=== PATIENT | male | born 1945 | race Caucasian/White ===

== ENCOUNTER 2017-02-13 09:27 | Observation (INO) | payer MEDICARE, OTHER ==
[2017-02-13] MEDS ORDERED: Albuterol/Ipratropium NEB.SOL* Albuterol 2.5 MG/Ipratropium 0.5 MG 3 ML INH ONE ×2 (09:47→11:17)
[2017-02-13] MEDS ORDERED: methylPREDNISolone 125 MG* 2 ML VIAL IM ONE (10:32)
--- NOTE | 2017-02-13 10:35 | ED ---
HPI Cardiac - HPI Summary HPI Summary: Pt here w/ cough x 1 week. Smokes. Started using his rx's of albuterol + advair upon cough starting - doesn't use these routinely otherwise. Minimal relief. Cough is productive at times. Has SOB as well. He has developed CP w/ cough over past couple of days. H/o pleural effusion. No known h/o requiring prednisone for breathing issues. Denies fever, chills, n/v/d. H/o OR - does not feel same. Denies CHF however chart indicates a med h/o of this. No LE edema to report. 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 Pain Intensity: 0 - Allergy/Home Medications Allergies/Adverse Reactions: Allergies Allergy/AdvReac Type Severity Reaction Status Date / Time No Known Allergies Allergy Verified 02/13/17 10:17 Home Medications: Home Medications Albuterol HFA INHALER* [Ventolin HFA Inhaler*] 2 puff INH Q4H PRN 02/13/17 [ History Confirmed 02/13/17] Atorvastatin* [Lipitor*] 40 mg PO BEDTIME 02/13/17 [History Confirmed 02/13/17] Budesonide/Formote 160/4.5(NF) [Symbicort 160/4.5 (NF)] 2 puff INH BID 02/13/17 [History Confirmed 02/13/17] Cholecalciferol TAB* [Vitamin D TAB*] 3,000 units PO DAILY 02/13/17 [History Confirmed 02/13/17] Furosemide TAB* [Lasix TAB*] 20 mg PO DAILY 02/13/17 [History Confirmed 02/13/17 ] Furosemide TAB* [Lasix TAB*] 40 mg PO DAILY 02/13/17 [History Confirmed 02/13/17 ] Levothyroxine TAB* [Synthroid TAB*] 25 mcg PO DAILY 02/13/17 [History Confirmed 02/13/17] Lisinopril TAB* [Prinivil TAB*] 20 mg PO DAILY 02/13/17 [History Confirmed 02/13] Metoprolol Succinate XL TAB* [Toprol XL TAB*] 25 mg PO DAILY 02/13/17 [History Confirmed 02/13/17] Nicotine Lozenge* 1 mg PO Q4HR PRN 02/13/17 [History Confirmed 02/13/17] Omeprazole CAP* [Prilosec CAP* 20 MG] 20 mg PO QAM 02/13/17 [History Confirmed 02/13/17] PMH/Surg Hx/FS Hx/Imm Hx Previously Healthy: Yes Endocrine/Hematology History: Reports: Hx Coagulopothy - H/o DVT in Rt groin Denies: Hx Anticoagulant Therapy - h/o warfrin therapy Cardiovascular History: Reports: Hx Congestive Heart Failure, Hx Deep Vein Thrombosis - h/o DVT in Rt groin Respiratory History: Reports: Hx Chronic Obstructive Pulmonary Disease (COPD) GI History: Reports: [place] [facility] [place]x Gastroesophageal Reflux Disease, Other GI Disorders - [place] [facility] [place] Denies: Hx Hiatal Hernia Musculoskeletal History: Reports: Hx Arthritis, Other Musculoskeletal History - Siatica Sensory History: Reports: Hx Contacts or Glasses, Hx Vision Problem Denies: Hx Cataracts, Hx Eye Injury, Hx Eye Prosthesis, Hx Glaucoma, Hx Legally Blind, Hx Macular Degeneration, Hx Deafness, Hx Hearing Aid, Hx Hearing Problem, Other Sensory Impairments Opthamlomology History: Reports: Hx Contacts or Glasses, Hx Vision Problem Denies: Hx Cataracts, Hx Eye Injury, Hx Eye Prosthesis, Hx Glaucoma, Hx Legally Blind, Hx Macular Degeneration, Other Sensory Impairments - Surgical History Surgery Procedure, Year, and Place: gall bladder 1995, hernia repair 1997, patient denines back surgy but well healed scar lateral on mid spine, approx 4cm in length Hx Anesthesia Reactions: No Infectious Disease History: Yes Infectious Disease History: Denies: Hx Clostridium Difficile, Hx Hepatitis, Hx Human Immunodeficiency Virus (HIV), Hx of Known/Suspected MRSA, Traveled Outside the [place] in Last 30 Days - Social History Lives: With Family Alcohol Use: None Substance Use Type: Reports: None Hx Tobacco Use: Yes Smoking Status (MU): Current Every Day Smoker Amount Used/How Often: trying to quit Review of Systems Constitutional: Negative Negative: Fever, Chills Negative: Sore Throat, Ear Ache, Nasal Discharge Positive: Chest Pain - see HPI Respiratory: Other - see HPI Gastrointestinal: Negative Positive: no symptoms reported Musculoskeletal: Negative Skin: Negative Neurological: Negative Positive: Anxious All Other Systems Reviewed And Are Negative: Yes Physical Exam Triage Information Reviewed: Yes Vital Signs On Initial Exam: Initial Vitals Temp Pulse Resp BP Pulse Ox 98.3 F 103 24 128/62 94 02/13/17 09:32 02/13/17 09:32 02/13/17 09:32 02/13/17 09:32 02/13/17 09:32 Vital Signs Reviewed: Yes Appearance: Positive: Ill-Appearing - he is speaking in full sentences but tachypnea and sitting with hands over head, Obese Skin: Positive: Warm, Dry Head/Face: Positive: Normal Head/Face Inspection Eyes: Positive: Normal, EOMI, Conjunctiva Clear ENT: Positive: Hearing grossly normal, Pharynx normal Neck: Positive: Supple, Nontender Respiratory/Lung Sounds: Positive: Breath Sounds Present, Rales - Lt lower lobe , Wheezes. Negative: Stridor Cardiovascular: Positive: Normal - distant heart sounds, RRR, Pulses are Symmetrical in both Upper and Lower Extremities, Leg Edema Right - sock line is apparent but not lisa pitting edema, S1, S2 Musculoskeletal: Positive: Normal, Strength/ROM Intact Neurological: Positive: Normal, Sensory/Motor Intact, Alert, Oriented to Person Place, Time, CN Intact II-III Psychiatric: Positive: Anxious - mild - [place] Coma Scale Coma Scale Total: 15 Diagnostics - Vital Signs Vital Signs Temp Pulse Resp BP Pulse Ox 02/13/17 10:08 98.1 F 98 16 106/74 91 02/13/17 09:32 98.3 F 103 24 128/62 94 - Laboratory Result Diagrams: 02/13/17 10:54 02/13/17 10:54 Lab Statement: Any lab studies that have been ordered have been reviewed, and results considered in the medical decision making process. Re-Evaluation - Re-Evaluation First Eval Change: Improved - some improvement with breathing after duoneb - chest remains w/ adventitious lung sounds - wheezing, rales Second Eval Change: Improved - more comfortable after solumedrol and 2nd duoneb but pt is on 3L O2 at sat 93% at rest - will consult hospital service - chest pain resolved Disposition - Diagnoses Provider Diagnoses: COPD exacerbation, Pneumonia involving left lung - Physician Notifications Discussed Care Of Patient With: Ethan Melo NP Discharge - Discharge Plan Condition: Stable Disposition: ADMITTED TO [facility]
[2017-02-13] MEDS ORDERED: methylPREDNISolone 125 MG* 2 ML VIAL IV ONE ×2 (10:39→13:02)
--- NOTE | 2017-02-13 10:53 | RAD ---
INDICATION: Cough and shortness of breath. COMPARISON: Comparison is made with a prior chest x-ray study from April 10, 2016. TECHNIQUE: Dual-energy PA and lateral views of the chest were obtained. FINDINGS: The heart is within normal limits in size. Mediastinal and hilar contours appear within normal limits. There is a small infiltrate present at the left lung base. No pleural effusion is seen. There is flattening of the diaphragms suggestive of chronic obstructive pulmonary disease. IMPRESSION: SMALL LEFT BASILAR INFILTRATE.
[2017-02-13 11:36] LABS: Hematocrit 43 % (42-52); Hemoglobin 14.4 g/dl (14.0-18.0); Mean Corpuscular HGB Conc 34 g/dl (31-36); Mean Corpuscular Hemoglobin 32 pg (27-31); Mean Corpuscular Volume 97 fL (80-94); Mean Platelet Volume 7 um3 (7.4-10.4); Red Blood Count 4.44 10^6/ul (4.0-5.4); Red Cell Distribution Width 15 % (10.5-15); White Blood Count 9.3 10^3/ul (3.5-10.8)
[2017-02-13 11:47] LABS: Albumin 3.5 g/dL (3.2-5.2); BUN/Creatinine Ratio 10.9 (8-20); Calcium 9.1 mg/dL (8.6-10.3); EGFR African American 65.3 (>60); EGFR Non-African American 50.8 (>60); Globulin 3.9 g/dL (2-4); Potassium 3.6 mmol/L (3.5-5.0); Total Bilirubin 0.8 mg/dL (0.2-1.0); Total Protein 7.4 g/dL (6.4-8.9)
[2017-02-13] MEDS ORDERED: cefTRIAXone(*) 1 GM in NS 0.9% 50 ML* 50 ML IVPB ONE (12:38)
[2017-02-13] MEDS ORDERED: Azithromycin IV(*) 500 MG in NS 0.9% 250 ML* 250 ML IVPB SCH (13:00)
[2017-02-13] MEDS ORDERED: Albuterol 2.5 MG/3 ML NEB.SOL* (0.083%) INH PRN (13:02)
[2017-02-13] MEDS ORDERED: Acetaminophen TAB* 325 MG PO PRN (13:02)
[2017-02-13] MEDS ORDERED: NS 0.9% 1000 ML* 1,000 ML IV SCH (13:15)
[2017-02-13] MEDS ORDERED: Nicotine Lozenge* 4 MG LOZENGE MT PRN (13:16)
[2017-02-13] MEDS: Heparin VIAL(*) 5000 UNITS/ML VIAL (FIVE THOUSAND) SUBCUT SCH ×2 (14:10→21:11)
[2017-02-13 14:13] LABS: C Reactive Protein 283.47 mg/L (< 5.00)
[2017-02-13] MEDS: Albuterol/Ipratropium NEB.SOL* Albuterol 2.5 MG/Ipratropium 0.5 MG 3 ML INH SCH ×3 (15:09→23:12)
[2017-02-13] MEDS: methylPREDNISolone SOD 40 MG* 1 ML VIAL IV SCH ×2 (15:14→21:10)
--- NOTE | 2017-02-13 17:21 | HP ---
CC: Yamila Joyce NP * HISTORY AND PHYSICAL: DATE OF ADMISSION: 02/13/17 PRIMARY CARE PROVIDER: Yamila Joyce NP, for [facility]. ATTENDING PHYSICIAN WHILE IN THE HOSPITAL: Kecia Hays MD * (report dictated by Ethan Melo NP). CHIEF COMPLAINT: 1. Cough. 2. Sore throat. 3. Shortness of breath. HISTORY OF PRESENT ILLNESS: Mr. Ghosh is a 71-year-old male patient who carries a history of hypothyroidism, hyperlipidemia, hypertension, GERD, also carries a history of COPD, history of DVT and an AK in the past and arthritis who comes into the ER today stating that over the last week he has been having progressive worsening shortness of breath associated with a cough and he has been bringing up a yellowish type discharge and sputum. He says to his knowledge he was not around any sick contacts, but he had gotten progressively more and more short of breath throughout the week to the point where whenever he coughed, he became more short of breath. Minimal exertion made him short of breath and he did admit to having some chills at night as well. He says whenever he coughed, he got more short of breath and whenever he took a deep breath, it hurt. He denies having any back pain. He only has chest pain when he takes a deep breath. He was concerned though, because his breathing was not getting any better. He was going to try to wait just to follow with his primary , but unfortunately he could not wait any longer, so he decided to come into the ER today to be evaluated. He was evaluated in the ER down here. There was concern for possible COPD exacerbation. An x-ray did show concern for pneumonia. Hospitalist service was asked to evaluate for admission. PAST MEDICAL HISTORY: Significant for: 1. Hypertension. 2. Hyperlipidemia. 3. COPD. 4. Hypothyroidism. 5. GERD. 6. Arthritis. 7. DVT in the past about 9 years ago. 8. History of AK. PAST SURGICAL HISTORY: 1. He has had cholecystectomy. 2. Hernia repair. HOME MEDICATIONS: According to the list that was provided by the [facility] include: 1. Omeprazole 20 mg daily. 2. Nicotine lozenge 1 mg p.o. every 4 hours as needed. 3. Toprol-XL 25 mg p.o. daily. 4. Lisinopril 20 mg daily. 5. Synthroid 25 mcg daily. 6. Lasix 60 mg daily. 7. Vitamin D 3000 units daily. 8. Symbicort 2 puffs inhale b.i.d. 9. Lipitor 40 mg at bedtime. 10. Ventolin 2 puffs inhale every 4 hours. 11. Viagra 50 mg daily as needed. ALLERGIES TO MEDICATIONS: Include no known drug allergies. FAMILY HISTORY: Mother had a heart attack. Father had COPD. SOCIAL HISTORY: About half pack a day smoker, he quit on Friday. He says he does not drink alcohol. Surrogate decision maker is his friend, Isabel. REVIEW OF SYSTEMS: There is no documented fever. He does admit to having chills at night. There is no significant weight change. No double vision. No ear discharge. He denies having any rhinorrhea, but there was sore throat. No thyroid enlargement. He admits to chest pain with taking deep breath. He admits to dyspnea on exertion. No orthopnea. No nocturnal dyspnea. There is no abdominal pain. No nausea. No vomiting. No dysuria. No frequency. There is no seizure. No loss of consciousness. No pruritus and no skin ulcerations. Review of 14 systems completed, all others were negative. PHYSICAL EXAMINATION GENERAL: Mr. Ghosh is a 71-year-old male patient. He is sitting in the ER stretcher. He does not appear to be in any acute distress. VITAL SIGNS: Blood pressure 106/74, pulse of 98, respirations of 16. His O2 sat was 91% on room air, he is now 93% to 95% on 3 L. HEENT: Head is atraumatic and normocephalic. Eyes: EOMs are intact. Sclerae anicteric and not pale. NECK: Supple. Throat: Oral mucosa appears to be moist. No oropharyngeal erythema. LUNGS: He had rhonchi in the upper lobes. He had wheezing noted bilaterally throughout. Equal diaphragmatic expansion. HEART: Sounds S1, S2. Regular rate and rhythm. No murmurs, rubs, or gallops. ABDOMEN: Soft, flat, nontender. Bowel sounds present. EXTREMITIES: Pulses were 2+ throughout. No peripheral edema. He is able to move all 4 extremities with 5/5 strength. NEUROLOGIC: The patient is awake, alert, and oriented x3. His tongue is midline. His cooler worker were equal. He had no gross focal deficits. SKIN: Intact. LABORATORY DATA/DIAGNOSTIC STUDIES: Today revealed a WBC of 9.3, RBC of 4.44, hemoglobin of 14.4, hematocrit of 43, and a platelet count of 213,000. Sodium 138, potassium 3.6, chloride of 102, bicarb 28, BUN 15, creatinine of 1.38 which appears to be near his baseline, glucose 127, lactate 0.9, calcium 9.1. Total bili 0.8, AST 11, ALT 9, alk phos 59, albumin 0.5. He had a chest x-ray obtained today. When I reviewed it, I did not appreciate any pleural effusions. There may be a small infiltrate in the left side. Radiology read as small basilar infiltrate. EKG today showed a normal sinus rhythm at a rate of 94. No ST elevations or T- wave inversions were noted. Old medical records were reviewed. ASSESSMENT/PLAN: Mr. Ghosh is a 71-year-old male patient coming into the ER today with complaints of difficulty with breathing. On evaluation, there was concern for possible pneumonia. He will be admitted under observation status for: 1. Chronic obstructive pulmonary disease exacerbation secondary to possible onset of pneumonia. At this point, we will go ahead and put him on Rocephin and azithromycin. We will go ahead and put him on nebs round the clock along with inhaled steroids and I am also going to give him Solu-Medrol 40 q.8 h. and I will continue with pulmonary toileting. We will get sputum cultures. In addition to this, we will try to get a Legionella and Strep pneumo antigens as well and I will send off blood cultures which I did order. 2. Hypothyroidism. Continue Synthroid. 3. Hyperlipidemia. Continue with statin. 4. History of hypertension. I am going to hold the Lasix in the setting of acute illness as he does appear to be a little dry, we can always restart this later. We will also hold the lisinopril. I will continue the metoprolol succinate, but I will change it to the immediate release formulation while he is ill. 5. Gastroesophageal reflux disease. Continue PPI therapy. 6. DVT prophylaxis. He is high risk. He was placed on heparin subcu. 7. Fluids, electrolytes and nutrition. He can have a regular diet. 8. Code status is full code. TIME SPENT: Time spent on the admission was approximately 60 minutes, greater than half the time spent [id number] with the patient obtaining my history and physical, other half the time spent going over the plan of care with the patient and implementing plan of care. I did discuss the plan of care with my attending, Dr. Hays; she is in agreement. ETHAN MELO NP [id number]/[facility] #: [id number] WENDI
[2017-02-13] MEDS: Mometasone/Formoter 200/5 MDI INH SCH (19:50)
[2017-02-13] MEDS ORDERED: Atorvastatin* 80 MG TAB PO SCH (21:00)
[2017-02-14] MEDS: Albuterol/Ipratropium NEB.SOL* Albuterol 2.5 MG/Ipratropium 0.5 MG 3 ML INH SCH ×3 (03:27→10:46)
[2017-02-14] MEDS: Heparin VIAL(*) 5000 UNITS/ML VIAL (FIVE THOUSAND) SUBCUT SCH (05:52)
[2017-02-14] MEDS: methylPREDNISolone SOD 40 MG* 1 ML VIAL IV SCH (05:52)
[2017-02-14 05:55] LABS: Hematocrit 39 % (42-52); Mean Corpuscular HGB Conc 33 g/dl (31-36); Mean Corpuscular Hemoglobin 32 pg (27-31); Mean Corpuscular Volume 97 fL (80-94); Mean Platelet Volume 7 um3 (7.4-10.4); Red Blood Count 4.08 10^6/ul (4.0-5.4); Red Cell Distribution Width 15 % (10.5-15); White Blood Count 7.3 10^3/ul (3.5-10.8)
[2017-02-14] MEDS ORDERED: Levothyroxine TAB* 25 MCG TAB PO SCH (06:00)
[2017-02-14 06:14] LABS: BUN/Creatinine Ratio 18.9 (8-20); Calcium 8.6 mg/dL (8.6-10.3); EGFR Non-African American 65.3 (>60); Potassium 3.9 mmol/L (3.5-5.0)
[2017-02-14] MEDS: Mometasone/Formoter 200/5 MDI INH SCH (07:07)
[2017-02-14 07:56] VITALS: BP 138/65
[2017-02-14] MEDS ORDERED: Omeprazole CAP* 20 MG PO SCH (09:00)
[2017-02-14] MEDS ORDERED: Metoprolol Tartrate TAB* 25 MG PO SCH (09:00)
[2017-02-14] MEDS ORDERED: cefTRIAXone VIAL(*) 1,000 MG in NS 0.9% 50 ML* 50 ML IVPB SCH (13:00)
[2017-02-14] MEDS ORDERED: Azithromycin IV(*) 500 MG in NS 0.9% 250 ML* 250 ML IVPB SCH (14:00)
--- NOTE | 2017-02-15 09:06 | DS ---
CC: Yamila Joyce NP* DISCHARGE SUMMARY: DATE OF ADMISSION: 02/13/17 DATE OF DISCHARGE: 02/14/17 PRIMARY CARE PROVIDER: Yamila Joyce NP with [facility] DISCHARGING PROVIDER: SORIN Riley SUPERVISING PHYSICIAN: Dr. José Luis Ghosh.* (DICTATED BY SORIN RILEY) PRIMARY DISCHARGE DIAGNOSES: 1. Chronic obstructive pulmonary obstruction exacerbation. 2. Pneumonia. SECONDARY DISCHARGE DIAGNOSES: 1. Hypothyroidism. 2. Hyperlipidemia. 3. Hypertension. 4. Gastroesophageal reflux disease. DISCHARGE MEDICATIONS: 1. Albuterol inhaler 2 puffs inhaled q.4 hours as needed for shortness of breath. 2. DuoNeb inhaled q.4 hours as needed for shortness of breath. 3. Lipitor 40 mg p.o. at bedtime. 4. Azithromycin 250 mg p.o. daily. 5. Symbicort 2 puffs inhaled twice daily. 6. Cefdinir 300 mg p.o. twice daily x7 days. 7. Vitamin D 3000 units p.o. daily. 8. Lasix 40 mg alternating with 20 mg daily. 9. Levothyroxine 25 mcg p.o. daily. 10. Lisinopril 20 mg p.o. daily. 11. Nicotine lozenge 1 mg p.o. q.4 hours as needed for nicotine craving. 12. Omeprazole 20 mg p.o. daily. 13. Spiriva 1 puff inhaled daily. 14. Prednisone on a tapering dose with 60 mg x3 days followed by 40 mg x3 days followed by 20 mg x3 days. MEDICATION CHANGES: 1. Cefdinir x7 days. 2. Azithromycin x4 days. 3. Start Spiriva. 4. Prednisone at a tapering dose as described above. HOSPITAL IMAGING: Chest x-ray shows a small left basilar infiltrate. HOSPITAL COURSE: This is a 71-year-old gentleman with hypothyroidism, hyperlipidemia, hypertension, GERD, COPD, coronary artery disease and history of prior DVT who presented to the emergency department with complaints of cough and shortness of breath. The patient states that he had been having worsening shortness of breath over the last week or so with the productive cough. He had some chills at night. No measured fever. When he reached the emergency department, he had no significant leukocytosis. His initial labs were significant for elevated C-reactive protein to 283. He was afebrile but without significant hypoxia although he was tachypneic and tachycardiac. His chest x-ray suggested a small left basilar infiltrate and the patient with subsequently admitted for COPD exacerbation and pneumonia. The patient was treated with IV corticosteroids and appropriate inhalers as well as ceftriaxone and azithromycin for community-acquired pneumonia. The patient reported significant improvement in his respiratory symptoms overnight and felt that he could manage appropriately at home. The patient did not have any episodes of significant hypoxia. His lungs had a few course of rhonchi at the time of discharge but otherwise had good breath sounds and patient remains afebrile. Of note, the patient states that at baseline he requires his albuterol inhaler anywhere from 3 to 5 times daily and his states that even after he uses his inhaler he is often still seemingly short of breath. For this reason, Spiriva was added to his typical home regimen including Symbicort and p.r.n. albuterol. The patient was also discharged with a nebulizer and prescription for DuoNeb. DISPOSITION AND FOLLOWUP PLAN: The patient is being discharged to home where he lives with his . Medication changes as outlined above. Recommend close followup with his primary care provider regarding this hospital admission. No labs are pending at the time of discharge. No followup imaging is indicated at this time. SORIN RILEY [id number]/[facility] #: [id number] WENDI
== END 2017-02-14 12:40 | disposition home or self-care (01) ==
LOC: ED 09:27 → MED 13:00
PROVIDERS: ADMIT Internal Medicine; ATTEND Internal Medicine
DX: J44.1 Chronic obstructive pulmonary disease with (acute) exacerbation (principal); J18.9 Pneumonia, unspecified organism; E03.9 Hypothyroidism, unspecified; I10 Essential (primary) hypertension; E78.5 Hyperlipidemia, unspecified; K21.9 Gastro-esophageal reflux disease without esophagitis; Z79.899 Other long term (current) drug therapy; F17.210 Nicotine dependence, cigarettes, uncomplicated
CPT/HCPCS: 36415; 71020; 80048; 80053; 83605; 83880; 85025; 86140; 87070; 87205; 87899; 93005; 94640; 94660; 96365; 96366; 96367; 96372; 96375; 96376; 99285; A9270-GY; G0378; J0456; J0696; J1644; J2920; J2930